=== PATIENT | female | born 1965 | race Caucasian/White ===

== ENCOUNTER 2019-06-13 01:56 | Emergency (ER) | payer OTHER, SELFPAY ==
[2019-06-13 02:01] VITALS: BP 140/100
[2019-06-13 02:26] VITALS: BMI 21.1
[2019-06-13] MEDS: NSS 500 IV (02:28)
--- NOTE | 2019-06-13 02:30 | ED.GENMED ---
Addendum entered and electronically signed by Antolin Guajardo MD 06/13/19 05:39:
Patient CT report was reviewed. Aware of renal cyst.
Original Note:
History of Present Illness
- General
Chief Complaint: Abdominal Pain
Source: patient
Exam Limitations: none
Time Seen by Provider: 06/13/19 02:02
- Travel History
Travel/Contact w/ anyone traveling outside [place] last 21 days: No
- History of Present Illness
History of Present Illness:
06/13/19 02:30
54-year-old female with 1 month of abdominal bloating. Over the last few days has developed some abdominal pain and back pain. Recommended ER evaluation by her primary physician although there were some insurance concerns. Pain became somewhat worse
this evening although back pain is improved. No nausea or vomiting. Last bowel movement 2 days ago. No fever. No other complaints at this time. Described as a dull continuous nonlocalizing discomfort
06/13/19 02:32
Of note patient apparently had trace blood in her urine and was started on Bactrim for a presumed UTI
Past History
- Past History
ED Past Medical History: Other (Clotting disorder)
ED Past Surgical History: Gynecological (D&C)
- Social History
Tobacco: Smoker
Alcohol: Occasional
Drug: None
Personal:
Living: with family
Employment: Employed
Review of Systems
- Review of Systems
All Other Systems: ROS reviewed and negative except as documented in HPI and ROS
Constitutional: Reports: weight gain
Respiratory: Reports: no symptoms
Cardiac: Reports: no symptoms
ABD/GI: Reports: constipated
: Reports: no symptoms
Phy Exam
- Physical Exam
Physical Exam:
06/13/19 02:32
GENERAL: Alert and oriented in no apparent distress
EYE: Orbits normal.
NECK: Supple, no thyroid.
ENT: Pharynx without erythema
CARDIAC: Regular rate and rhythm without any obvious murmurs.
LUNGS: Clear breath sounds,normal
ABDOMEN: Soft, bowel sounds present. Mild distention. No fluid wave. Mild nonlocalizing tenderness. No CVA tenderness.
SKIN: Warm and dry, no rash or lesion, no discoloration, skin intact. Old facial scars
MUSCULOSKELETAL: No edema,no deformity.Good color
PSYCH: Normal and appropriate interaction.
Course
- Orders/Labs/Results
Orders:
Orders
06/13/19 02:21
Electrocardiogram (*1) Stat
Reason for Study: Abdominal Pain
CT Abd/pel W Iv And Oral Contr Urgent
Comment:
Reason For Exam: diffuse abdominal pain with radiation to back
EKG- Treatment ONCE
IV Insert/Care/Rem.- Treatment PRN
0.9% Sodium Chloride 500 ml [Nss] 500 ml IV BOLUS
Iohexol [Omnipaque] See Protocol PO NOW STA
Pulse Ox/cont/shift [RESP] Stat
Quantity: 1
06/13/19 02:29
Alcohol Urgent
Comprehensive Metabolic Panel Urgent
Lipase Urgent
PTT Urgent
Prothrombin Time Urgent
06/13/19 02:30
Complete Blood Count/With Diff Urgent
06/13/19 02:55
Add On- LAB Urgent
Tests Added?: alcohol
06/13/19 03:20
Urinalysis Reflex To Culture Urgent
Date Specimen was Collected: 06/13/19
Time Specimen was Collected: 03:19
Abnormal Lab Results
06/13/19 06/13/19
02:29 02:30
RBC 4.16 10^6/uL L 10^6/uL
(4.20-5.40)
MCH 33.4 pg H pg
(27.0-31.0)
Immature Gran % 0.6 % H %
(0-0.5)
BUN 18 mg/dl H mg/dl
(7-17)
06/13/19 02:30
06/13/19 02:29
06/13/19 05:35
Labs are normal
- *Radiology
Radiology exam reviewed: CT Scan report reviewed (No acute findings. Small renal cyst.)
Reason for Head CT 18+ years of age with head injury: Not applicable
Reason for Head CT 0-17 years of age with head injury: Not applicable
Reason for Head CT for patient with headache: Not applicable
- *Pulse Oximetry
Patient hypoxic: no
- *EKG Interpretation by ED Provider
Rate: EKG- N/A
- *Critical Care Note
Total Time (30-74mins, 75-104mins- exclusive of procedures): Not Applicable
- *Ab Initio Etl Developer Intrepretation
Rate: Ab Initio Etl Developer- N/A
- Vital Signs
Initial and Last Documented VS:
Initial Vital Signs
Temp Pulse Resp BP Pulse Ox
98.4 F 109 20 140/100 99
06/13/19 02:01 06/13/19 02:01 06/13/19 02:01 06/13/19 02:01 06/13/19 02:01
Last Documented Vital Signs
Temp Pulse Resp BP Pulse Ox
98.4 F 109 20 140/100 98
06/13/19 02:01 06/13/19 02:01 06/13/19 02:01 06/13/19 02:01 06/13/19 02:15
- Information
Weeks gestation: N/A
Location: N/A
Medical Decision/Update
- Medical Decison/Update
Notes:
ER workup is unremarkable. No serious etiology found. Patient is nontoxic. EKG was only ordered because the primary care physician apparently had asked for 1. Patient is dressed and medically not necessary at this time
06/13/19 05:37
Of note patient had a significant bowel movement here and feels much better.
Departure
- Departure
Final Disposition: Home (Routine Discharge)
Date of Disposition: 06/13/19
Time of Disposition: 05:37
Patient with high blood pressure during this ER visit?: Yes
Condition: Fair
Diagnosis:
abdominal pain/bloating, elevated blood pressure reading
Instructions: Abdominal Pain (ED), BLOOD PRESSURE
Referrals:
Ginny Martin PA-C [Family Provider] - Follow up in 2-3 days
Talon Johnson DO [Active] - Next open appointment
[2019-06-13] MEDS: OMNIPAQUE 50 ML PO (02:35)
[2019-06-13 02:37] LABS: % Basophils 0.4 % (0-2); % Eosinophils 5.4 % (0-6); % Immature Granulocytes 0.6 % (0-0.5); % Lymphocytes 25.9 % (20.5-51.1); % Monocytes 8.1 % (1.7-9.3); % Neutrophils 59.6 % (42.2-75.2); Absolute Eosinophils 0.3 10^3/uL (0-0.7); Absolute Lymphocytes 1.3 10^3/uL (1.2-3.4); Absolute Monocytes 0.4 10^3/uL (0.1-0.6); Absolute Neutrophils 3.1 10^3/uL (1.4-6.5); Hematocrit 39.4 % (37.0-47.0); Hemoglobin 13.9 g/dL (12.0-16.0); Mean Corp Hgb Conc. 35.3 g/dL (33.0-37.0); Mean Corpuscular Hgb 33.4 pg (27.0-31.0); Mean Corpuscular Volume 94.7 fL (81.0-99.0); Nucleated Red Blood Cells % 0 %; Platelet Count 259 10^3/uL (130-400); Red Blood Cell Count 4.16 10^6/uL (4.20-5.40); Red Cell Dist. Width 12.4 % (11.5-14.5); White Blood Cell Count 5.2 10^3/uL (4.8-10.8)
[2019-06-13 02:55] LABS: APTT 25.2 Sec (23.4-35.0); INR 0.86; PT 11.7 Sec (11.4-14.6)
[2019-06-13 02:57] LABS: ALT (SGPT) 16 U/L (9-52); AST (SGOT) 30 U/L (14-36); Albumin 4.1 g/dl (3.5-5.0); Alkaline Phosphatase 88 U/L (38-126); Blood Urea Nitrogen 18 mg/dl (7-17); Calcium 9.7 mg/dl (8.4-10.2); Carbon Dioxide 23 mmol/L (22-30); Chloride 102 mmol/L (98-107); Estimated Creatinine Clearance 63 ml/min; Glomerular Filtration Rate > 60.0; Glucose 97 mg/dl (65-99); Lipase 88 U/L (23-300); Potassium 4.3 mmol/L (3.5-5.1); Sodium 135 mmol/L (135-145); Total Bilirubin 0.7 mg/dl (0.2-1.3); Total Protein 6.8 g/dl (6.3-8.2)
[2019-06-13 03:29] LABS: Alcohol None Detected
[2019-06-13 03:34] LABS: Urine Albumin Negative (Neg- 1+); Urine Bilirubin Negative (Negative); Urine Character Clear (Clear); Urine Color Yellow; Urine Glucose Negative (Negative); Urine Ketone Negative (Negative); Urine Leukocyte Negative (Negative); Urine Nitrite Negative (Negative); Urine Occult Blood Negative (Negative); Urine Specific Gravity 1.015 (<1.030); Urine Urobilinogen 1+ (Neg - 1+)
[2019-06-13 05:56] VITALS: BP 134/85
== END 2019-06-13 05:59 | disposition home or self-care (01) ==
LOC: EMR 01:56
PROVIDERS: EMERGENCY PHYSICIAN Emergency Medicine; FAMILY PHYSICIAN Physician Assistant Medical
DX: R10.9 Unspecified abdominal pain (principal); R14.0 Abdominal distension (gaseous); R63.5 Abnormal weight gain; R03.0 Elevated blood-pressure reading, without diagnosis of hypertension; M54.9 Dorsalgia, unspecified; N28.1 Cyst of kidney, acquired; F17.200 Nicotine dependence, unspecified, uncomplicated
CPT/HCPCS: 74177; 80053; 81003; 82077; 83690; 85025; 85610; 85730; 94760; 96360; 96361; 99285; Q9967

== ENCOUNTER → 2024-12-06 15:58 | Outpatient (REF) | payer OTHER, SELFPAY | LOC: WDC 15:58 | PROVIDERS: ATTENDING PHYSICIAN Internal Medicine | DX: Z12.31 Encounter for screening mammogram for malignant neoplasm of breast (principal) | CPT/HCPCS: 77063; 77067 ==